=== PATIENT | female | born 1970 | race Caucasian/White ===

== ENCOUNTER → 2021-01-14 10:52 | Outpatient (CLI) | payer MEDICAID, SELFPAY ==
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
[2021-01-14 11:22] LABS: Amphetamine Urine VISTA NEGATIVE (<1000 ng/mL); Barbiturate Urine VISTA NEGATIVE (< 200 ng/mL); Benzodiazepine Urine VISTA NEGATIVE (< 200 ng/mL); Cocaine Urine VISTA NEGATIVE (< 300 ng/mL); Ecstacy Urine VISTA NEGATIVE (< 500 ng/mL); Methadone Urine VISTA NEGATIVE (< 300 ng/mL); PCP Urine VISTA NEGATIVE (< 25 ng/mL); THC Urine VISTA NEGATIVE (< 50 ng/mL); Vista UDS pH Range 5
== END ==
PROVIDERS: Referring Provider Anesthesiology; Visit Provider Anesthesiology
DX: F11.20 Opioid dependence, uncomplicated (principal); M54.5 Low back pain; M54.6 Pain in thoracic spine
CPT/HCPCS: 72040; 72070; 72100; 80307

== ENCOUNTER → 2021-07-28 14:46 | Outpatient (CLI) | payer MEDICAID, SELFPAY ==
[2021-07-28 16:28] LABS: Amphetamine Urine VISTA NEGATIVE (<1000 ng/mL); Barbiturate Urine VISTA NEGATIVE (< 200 ng/mL); Benzodiazepine Urine VISTA NEGATIVE (< 200 ng/mL); Cocaine Urine VISTA NEGATIVE (< 300 ng/mL); Ecstacy Urine VISTA NEGATIVE (< 500 ng/mL); Methadone Urine VISTA NEGATIVE (< 300 ng/mL); PCP Urine VISTA NEGATIVE (< 25 ng/mL); THC Urine VISTA POSITIVE (< 50 ng/mL); Vista UDS pH Range 5
== END ==
PROVIDERS: Visit Provider Anesthesiology
DX: F11.20 Opioid dependence, uncomplicated (principal)
CPT/HCPCS: 80307

== ENCOUNTER → 2021-08-08 10:29 | Outpatient (CLI) | payer MEDICAID, SELFPAY ==
[2021-08-08 12:18] LABS: Absolute Lymphocyte Count 1.87 X10^3/uL (0.83-4.51); Absolute Neutrophil Count 4.9 X10^3/uL (2.0-7.7); Basophil# 0.06 X10^3/uL; Basophil% 0.8 % (0-1); Eosinophil# 0.19 X10^3/uL; Eosinophils% 2.5 % (0-5); Hematocrit 40.2 % (37-47); Hemoglobin 13.2 g/dL (12.0-15.0); Lymphocyte # 1.87 X10^3/ul (0.83-4.51); Lymphocyte % 24.5 % (19-41); Mean Corp Hgb Conc 32.8 g/dL (32-36); Mean Corpuscular Hgb 34.3 pg (27.0-32.0); Mean Corpuscular Volume 104.4 fL (81-99); Mean Platelet Vol. 10.6 fl (6.2-12.0); Monocyte# 0.59 X10^3/uL; Monocyte% 7.7 % (0-10); NRBC Flagged by Analyzer 0 % (0-5); Neutrophil # 4.88 X10^3/uL (2.7-7.7); Neutrophil % 64.1 % (47-70); Platelet Count 244 K/mm3 (150-450); RBC Distribution Width CV 14.2 % (11.6-14.6); RBC Distribution Width SD 54.6 fl (35.1-43.9); Red Blood Count 3.85 M/mm3 (4.2-5.4); White Blood Count 7.6 K/mm3 (4.4-11.0)
[2021-08-08 12:39] LABS: ALB/GLOB Ratio 0.9 RATIO (0.9-2.4); AST(SGOT) 19 U/L (15-37); Alanine Aminotransfer ALT/SGPT 46 U/L (13-56); Albumin, Serum 3.6 g/dL (3.2-5.0); Alkaline Phosphatase 116 U/L (45-117); Anion Gap 10 (5-15); BUN 17 mg/dL (7-18); BUN/Creat Ratio 19.5 RATIO (10-20); Calcium,Total 9.4 mg/dL (8.5-10.1); Chloride 106 mmol/L (98-107); Creatinine, Serum 0.87 mg/dL (0.55-1.02); EST Glomerular Filtration Rate 73 mL/min (>60); Est Glom Filt Rate - Afr Amer 89 mL/min (>60); Globulin 3.8 g/dL (2.2-4.2); Glucose 100 mg/dL (74-106); Potassium 4.2 mmol/L (3.5-5.1); Protein, Total 7.4 g/dL (6.4-8.2); Sodium Level 141 mmol/L (136-145)
== END ==
PROVIDERS: Referring Provider Urology; Visit Provider Urology
DX: N39.0 Urinary tract infection, site not specified (principal); R10.9 Unspecified abdominal pain
CPT/HCPCS: 36415; 80053; 85025

== ENCOUNTER → 2021-08-18 12:29 | Outpatient (CLI) | payer MEDICAID, SELFPAY ==
--- NOTE | 2021-08-18 12:31 | CT_ITS ---
STUDY: CT ABDOMEN AND PELVIS WITH AND WITHOUT CONTRAST REASON FOR EXAM: Female, 50 years old. Flank pain UTI RADIATION DOSAGE (If Supplied By Facility): CTDIvol = ( 8.83 ) mGy, DLP = ( 840.68 ) mGycm TECHNIQUE: Transaxial images were obtained from the dome of the diaphragm to the symphysis pubis without oral contrast. IV 75ML ISOVUE 300 was administered. Sagittal and coronal images were reconstructed. Individualized dose optimization techniques were used for this CT. COMPARISON: None. FINDINGS: The visualized lung bases are unremarkable. The visualized portions of the heart are within normal limits. Normal liver. Gallbladder is removed.. Normal spleen. Normal pancreas. Normal bilateral adrenal glands. Normal right kidney. Normal left kidney. There is no intestinal obstruction. Appendix contains multiple appendicoliths but is not inflamed. Aorta is normal caliber and contains extensive lipid rich and calcified plaque. This is unusual for a patient of this age/gender profile and represents severely accelerated atherosclerosis. Normal urinary bladder. Uterus is removed. Normal abdominal wall. There is chronic degeneration and wedge compression deformity of T11. CT/CT Abd/Pelvis W/WO Contrast IMPRESSION: 1. Severe accelerated aortic atherosclerosis. Elevated future risk of adverse cardiovascular events. Atherosclerosis specialty referral advised. 2. Normal urinary system. Electronically Signed: Constance Bustamante MD at 16:43 EDT Tel , Service support ,
== END ==
PROVIDERS: Visit Provider Urology
DX: R10.9 Unspecified abdominal pain (principal); R11.0 Nausea; N39.0 Urinary tract infection, site not specified; R63.4 Abnormal weight loss
CPT/HCPCS: 74178; Q9967

== ENCOUNTER 2021-11-24 11:51 | Outpatient (CLI) | payer MEDICAID, SELFPAY ==
[2021-11-24 13:14] LABS: Amphetamine Urine VISTA NEGATIVE (<1000 ng/mL); Barbiturate Urine VISTA NEGATIVE (< 200 ng/mL); Benzodiazepine Urine VISTA NEGATIVE (< 200 ng/mL); Cocaine Urine VISTA NEGATIVE (< 300 ng/mL); Ecstacy Urine VISTA POSITIVE (< 500 ng/mL); Methadone Urine VISTA NEGATIVE (< 300 ng/mL); PCP Urine VISTA NEGATIVE (< 25 ng/mL); THC Urine VISTA NEGATIVE (< 50 ng/mL); Vista UDS pH Range 6
== END 2021-11-24 23:59 | disposition short-term general hospital (02) ==
LOC: LAB 11:53
PROVIDERS: Visit Provider Anesthesiology
DX: F11.20 Opioid dependence, uncomplicated (principal)
CPT/HCPCS: 80307

== ENCOUNTER 2022-01-05 12:14 | Outpatient (CLI) | payer MEDICAID, SELFPAY ==
--- NOTE | 2022-01-05 12:25 | MRI_ITS ---
STUDY: MRI LUMBAR SPINE WITHOUT CONTRAST REASON FOR EXAM: Female, 51 years old. Lumbar radiculopathy TECHNIQUE: Standardized fat and water weighted pulse sequences were obtained in the sagittal and axial planes. COMPARISON: CT abdomen and pelvis with and without contrast 08/18/2021. FINDINGS: T10-T11: (Sagittal only). Normal T10 inferior endplate. Old anterior wedge compression fracture of the upper T11 vertebral body and the deep central Schmorl''s node of the T11 superior endplate. Increase central disc space height due to the Schmorl''s node. Normal central canal and bilateral intervertebral neural foramina. T11-T12 and T12-L1: (Sagittal only). Normal endplates. Normal disc height, hydration and morphology. No ventral extradural defect. Normal central canal and bilateral intervertebral neural foramina. Normal lumbar lordosis. There is no substantial scoliosis. Normal conus medullaris that terminates at the T12-L1 disc level. L1-2: Normal endplates. Normal disc height, hydration and morphology. Normal bilateral facet joints. Normal central canal and bilateral lateral recesses. Normal bilateral intervertebral neural foramina. L2-3: Normal endplates. Mild disc space height narrowing. Small ventral extradural defect due to small posterior bulging disc. Normal facet joints. Normal central canal and bilateral lateral recesses. Normal bilateral intervertebral neural foramina. L3-4: Normal endplates. Normal disc height, hydration and morphology. Normal bilateral facet joints. Normal central canal and bilateral lateral recesses. Normal bilateral intervertebral neural foramina. L4-5: Normal endplates. Normal disc height, hydration and morphology. Normal bilateral facet joints. Normal central canal and bilateral lateral recesses. Normal bilateral intervertebral neural foramina. L5-S1: Normal endplates. Normal disc height, hydration and morphology. Normal bilateral facet joints. Normal central canal and bilateral lateral recesses. Normal bilateral intervertebral neural foramina. Normal visualized sacral ala. Normal visualized paraspinous soft tissue structures. MRI/Spine Lumbar (Routine) IMPRESSION: 1. No MRI evidence of lumbar extruded disc fragment, spinal stenosis or nerve root displacement. 2. Small L2-L3 posterior bulging disc. 3. Old anterior wedge compression fracture of the upper T11 vertebral body with a prominent empty T11 superior endplates of central Schmorl''s node. 4. No interval change when compared to CT abdomen and pelvis of 08/18/2021. Electronically Signed: John Salinas MD at 12:47 EST ,
== END 2022-01-05 23:59 | disposition home or self-care (01) ==
PROVIDERS: PCP Internal Medicine; Referring Provider Anesthesiology Pain Medicine; Visit Provider Anesthesiology Pain Medicine
DX: M54.16 Radiculopathy, lumbar region (principal)
CPT/HCPCS: 72148

== ENCOUNTER 2022-01-16 13:20 | Outpatient (CLI) | payer MEDICAID, SELFPAY ==
[2022-01-16 14:17] LABS: Amphetamine Urine VISTA NEGATIVE (<1000 ng/mL); Barbiturate Urine VISTA NEGATIVE (< 200 ng/mL); Benzodiazepine Urine VISTA NEGATIVE (< 200 ng/mL); Cocaine Urine VISTA NEGATIVE (< 300 ng/mL); Ecstacy Urine VISTA POSITIVE (< 500 ng/mL); Methadone Urine VISTA NEGATIVE (< 300 ng/mL); PCP Urine VISTA NEGATIVE (< 25 ng/mL); THC Urine VISTA NEGATIVE (< 50 ng/mL); Vista UDS pH Range 5
== END 2022-01-16 23:59 | disposition home or self-care (01) ==
LOC: LAB 13:22
PROVIDERS: PCP Internal Medicine; Referring Provider Anesthesiology Pain Medicine; Visit Provider Anesthesiology Pain Medicine
DX: F11.20 Opioid dependence, uncomplicated (principal)
CPT/HCPCS: 80307

== ENCOUNTER 2022-03-09 06:24 | Day surgery (SDC) | payer MEDICAID, SELFPAY ==
[2022-03-09] VITALS (7 sets, daily range): BP systolic 126–153; BP diastolic 70–93; PULSE 62–73; RESP 16–18; TEMP 36.4–36.7; O2SAT 94–99; BMI 25.1
[2022-03-09] MEDS: Lactated Ringers 1,000 ML 15 ML IV (06:40)
[2022-03-09] MEDS: Vancomycin IV 1,000 MG/200 ML BAG 200 MG IV (07:45)
--- NOTE | 2022-03-09 09:21 | RAD_ITS ---
STUDY: INTRAOPERATIVE FLUOROSCOPY TECHNIQUE: The examination was performed with referring physician in attendance. Under fluoroscopic observation, fluoroscopic images were obtained. Radiologist was not present for the study. Radiologist did not perform the procedure. This dictation is for documentation of the radiation dosage only. There is no interpretation of the images. TOTAL NUMBER OF IMAGES: 1 COMPARISON: None RADIATION DOSE: 49 mGy FLUOROSCOPY TIME: 95 seconds REASON FOR EXAM: KYPHOPLASTY T11 Female, 51 years old. FINDINGS: Images of the thoracolumbar spine. Images of the kyphoplasty RAD/Spine 1 View Any Level IMPRESSION: Fluoroscopic assistance images were obtained. Dictation for documentation purposes only. Electronically Signed: Meir Renae MD at 14:21 EDT ,
[2022-03-09] MEDS: 0.9% Normal Saline (Pres. free 10 ML Vial (09:26)
--- NOTE | 2022-03-09 11:22 | SUR.PHASEII ---
per dr shea, call office if needs pain medicine.
== END 2022-03-09 11:24 | disposition home or self-care (01) ==
LOC: SDC 06:24 → AC 06:26
PROVIDERS: Referring Provider Anesthesiology Pain Medicine; Visit Provider Anesthesiology Pain Medicine
PROC: (CPT 22513; principal; 2022-03-09 08:15)
DX: M48.54XA Collapsed vertebra, not elsewhere classified, thoracic region, initial encounter for fracture (principal); J44.9 Chronic obstructive pulmonary disease, unspecified; K21.9 Gastro-esophageal reflux disease without esophagitis; E78.00 Pure hypercholesterolemia, unspecified
CPT/HCPCS: 22513; 72020; 76000; J7120; J2405; J3490

== ENCOUNTER → 2022-03-22 | Outpatient (CLI) | payer MEDICAID, SELFPAY ==
--- NOTE | 2022-03-22 12:01 | RAD_ITS ---
STUDY: X-RAY - LUMBAR SPINE REASON FOR EXAM: Female, 51 years old. History of kyphoplasty. Increased pain. TECHNIQUE: 2 view(s) of the lumbar spine were obtained. COMPARISON: Lumbar spine MR dated 01/05/2022 and lumbar spine radiographs dated 01/14/2021. FINDINGS: Normal lumbar lordosis. Stable mild lumbosacral scoliosis. There is a normal alignment of the vertebrae. T11 kyphoplasty without complications. Diffuse facet sclerosis. Mild diffuse intervertebral disc space narrowing with small osteophytes. Vascular calcification. RAD/Lumbar Spine 2 or 3 Views IMPRESSION: T11 kyphoplasty since the prior study. Stable diffuse mild lumbosacral spondylosis. Electronically Signed: Curry Palafox MD at 13:03 EDT ,
--- NOTE | 2022-03-22 12:01 | RAD_ITS ---
STUDY: X-RAY - THORACIC SPINE REASON FOR EXAM: Female, 51 years old. Increasing pain since kyphoplasty 03/09/2022. TECHNIQUE: 2 view(s) of the thoracic spine were obtained. COMPARISON: 01/14/2021. FINDINGS: Osteopenia. Normal kyphosis of the thoracic spine. There is no substantial scoliosis. Kyphoplasty at T11 with mild anterior wedge compression deformity which is slightly progressed since the prior study. Normal disc space heights. The soft tissue structures are unremarkable. RAD/Thoracic Spine 3 Views IMPRESSION: Progression anterior wedge compression deformity of T11 since the prior study. Electronically Signed: Curry Palafox MD at 13:20 EDT ,
== END | disposition home or self-care (01) ==
LOC: RAD 11:55
PROVIDERS: Referring Provider Anesthesiology Pain Medicine; Visit Provider Anesthesiology Pain Medicine
DX: M80.08XA Age-related osteoporosis with current pathological fracture, vertebra(e), initial encounter for fracture (principal)
CPT/HCPCS: 72110; 72072; 72100

== ENCOUNTER → 2022-08-16 | Outpatient (CLI) | payer MEDICAID, SELFPAY ==
[2022-08-16 14:12] LABS: Amphetamine Urine VISTA NEGATIVE (<1000 ng/mL); Barbiturate Urine VISTA NEGATIVE (< 200 ng/mL); Benzodiazepine Urine VISTA NEGATIVE (< 200 ng/mL); Cocaine Urine VISTA NEGATIVE (< 300 ng/mL); Ecstacy Urine VISTA NEGATIVE (< 500 ng/mL); Methadone Urine VISTA NEGATIVE (< 300 ng/mL); PCP Urine VISTA NEGATIVE (< 25 ng/mL); THC Urine VISTA NEGATIVE (< 50 ng/mL); Vista UDS pH Range 7
== END | disposition home or self-care (01) ==
LOC: LAB 13:19
PROVIDERS: Visit Provider Anesthesiology Pain Medicine
DX: F11.20 Opioid dependence, uncomplicated (principal)
CPT/HCPCS: 80307

== ENCOUNTER 2022-09-06 14:46 | Emergency (ER) | payer MEDICAID, SELFPAY ==
[2022-09-06 14:47] VITALS: BP 138/88; PULSE 80; RESP 16; TEMP 36.4; O2SAT 99; BMI 25.7
--- NOTE | 2022-09-06 14:58 | ED.RN ---
PT STATES HE DOES NOT WANT TO FILE WORKERS COMP
--- NOTE | 2022-09-06 15:17 | EDS_ITS ---
HPI History of Present Illness Chief Complaint: Back Informant: patient Onset/Context/Timing Onset: Yesterday Context: Onset with activity and Sudden Onset Injury: lifting Timing: Continuous Quality: Aching Location: Lumbar Worsened by: improves with Movement Relieved by: Nothing Associated Symptoms Associated Symptoms: Negative for Numbness, Tingling, Radiation to Right Leg, Radiation to Left Leg, Fever, Abdominal Pain, Dysuria, Unable to Ambulate, Unable to Transfer, Urinary Retention, Urinary Incontinence, Constipation or Fecal Incontinence Narrative Narrative: Patient presents with back pain that began last night. Patient states she climbed up onto a counter and felt a pop in her back. Patient states she was lifting a window when this occurred. Patient states it weighed approximately 50 to 60 pounds. Patient states her pain has been constant. Patient describes it as aching. Patient states it is mainly on the left lumbar area. Patient states it is worse with movement. Patient states nothing seems to help with it. Patient denies any radiation of the pain. Patient denies any paresthesias or weakness. Patient denies any abdominal pain. Patient denies any bowel or blad aylin changes. Patient denies any saddle anesthesia. [facility] Medical History Anemia Anxiety Back pain Cardiology follow-up encounter COPD (chronic obstructive pulmonary disease) Difficulty swallowing Easy bruising Gastric reflux Gastritis High cholesterol History of ankle fracture History of diverticulitis History of pain when walking History of stress test History of suicide attempt Injury of back Injury of head and neck Leg cramps Pain Palpitations PTSD (post-traumatic stress disorder) Shortness of breath on exertion Smoker Wears dentures Home Medications acetaminophen 300 mg-codeine 60 mg tablet 1 tab PO BID PRN Pain 03/08/22 [History Last Taken Unknown] gabapentin 600 mg tablet 600 mg PO 4X/DAY 03/08/22 [History Last Taken Unknown] nabumetone 750 mg tablet 1,500 mg PO QHS 03/08/22 [History Last Taken Unknown] omeprazole 20 mg capsule,delayed release 20 mg PO BID 03/08/22 [History Last Taken 03/09/22] propranolol 10 mg tablet 10 mg PO BID PRN PANIC ATTACKS 03/08/22 [History Last Taken Unknown] tizanidine 4 mg capsule (Zanaflex) 4 mg PO BID 03/08/22 [History Last Taken Unknown] trazodone 150 mg tablet 150 mg PO QHS 03/08/22 [History Last Taken Unknown] venlafaxine 75 mg tablet 75 mg PO DAILY 03/08/22 [History Last Taken 03/09/22] Allergy/AdvReac Type Severity Reaction Status Date / Time amoxicillin Allergy Swelling Verified 09/06/22 14:49 tramadol Allergy Swelling Verified 09/06/22 14:49 Surgical History History of History of carpal tunnel surgery of left wrist History of carpal tunnel surgery of right wrist History of lumpectomy of right breast Hx laparoscopic cholecystectomy Hx of esophagogastroduodenoscopy Hx of hysterectomy Social History Smoking Status: Current every day smoker tobacco type: cigarettes ROS ROS ED Constitutional Constitutional ED: Denies chills or fever(s) Eyes Eyes: Denies blurry vision or change in vision ENT ENT ED: Denies rhinorrhea or sore throat Cardiovascular Cardiovascular: Denies chest pain or palpitations Respiratory/Chest Respiratory/Chest: Denies cough or dyspnea Gastrointestinal Gastrointestinal: Reports nausea; Denies vomiting Genitourinary Genitourinary ED: Denies dysuria or hematuria Musculoskeletal Musculoskeletal: Reports back pain; Denies neck pain Integumentary Denies abscess or rash Neurologic Neurologic: Denies headache(s) or weakness Allergic/Immunologic Allergic/Immunologic ED: Denies mouth swelling or urticaria EXAM Physical Exam Const Vital Signs: 09/06/22 14:47 Temperature 97.6 F L Temperature Source Temporal Pulse Rate 80 Respiratory Rate 16 Blood Pressure 138/88 H Blood Pressure Mean 104 Pulse Ox 99 Oxygen Delivery Method Room Air Positive well nourished and well developed General Appearance ED: well developed and NAD HEENT Reports moist mucous membranes Neck supple and no JVD Back/Spine Back/Spine Narrative: There is tenderness over the left lumbar paraspinal muscles. There is no midline tenderness. There is no bony crepitance or step-off. There is no obvious deformity noted. Range of motion was limited in all motions of the lumbar spine secondary to pain. Strength is 5/5 bilaterally in the lower extremities. There are no sensory deficits noted. Deep tendon reflexes are 2+/4 bilaterally in the lower extremities. Lumbar Spine / Lower Back: ROM limited and straight leg raise negative bilaterally Neuro oriented x3 and no sensory deficits noted Sensorium / Orientation: alert Motor Exam: strength 5/5 throughout Deep Tendon Reflexes: Rt Patellar (L4): 2+, Lt Patellar (L4): 2+, Rt Ankle (S1): 2+ and Lt Ankle (S1): 2+ Deep Tendon Reflexes Back: Rt Patellar (L4): 2+, Lt Patellar (L4): 2+, Rt Ankle (S1): 2+ and Lt Ankle (S1): 2+ Psych mental status grossly normal MDM MDM MDM Narrative Medical decision making narrative: Patient was given a dose of morphine here. X-rays of the lumbar spine were obtained. There are 2 views. On my interpretation, there are some degenerative changes. There is a prior T11 kyphoplasty. There is no acute fracture or spondylolisthesis. Radiologist also interpreted the x-rays and agrees. Patient was given a prescription for a short course of [place]. Patient was instructed use ice to the area. Patient was instructed to follow-up with her Workmen's Comp. or primary care physician in 3 to 5 days. Patient was given restrictions for work. Patient understood and was agreeable with the plan. All questions were answered. Radiography X-Ray: LS SPine, Read by ED Physician, Read by Radiologist, No Fracture and DJD Diagnostic Testing: Clinical Impression(s) from Imaging Studies Lumbar Spine X-Ray 09/06/22 15:21 IMPRESSION: Degenerative changes of the spine, as detailed above. Dextroscoliosis. Prior T11 kyphoplasty. Electronically Signed: Lamberto Hurtado MD at 15:44 EDT , Discharge Plan Triage Chief Complaint: Back ED Provider: Rob Dove Dx/Rx/DC Orders Clinical Impression: Acute lumbosacral myofascial strain, Chronic low back pain Instructions: ED Back Sprain/Strain Prescriptions: No Action gabapentin 600 mg Tablet 600 mg PO 4X/DAY venlafaxine [Effexor] 75 mg Tablet 75 mg PO DAILY nabumetone 750 mg Tablet 1,500 mg PO QHS propranolol 10 mg Tablet 10 mg PO BID PRN (Reason: PANIC ATTACKS) trazodone 150 mg Tablet 150 mg PO QHS omeprazole 20 mg Capsule,Delayed Release(Dr/Ec) 20 mg PO BID acetaminophen-codeine [Tylenol-Codeine #4] 300-60 mg Tablet 1 tab PO BID PRN (Reason: Pain) tizanidine [Zanaflex] 4 mg Capsule 4 mg PO BID Stand Alone Forms: Work Status Form Primary Care Provider: Care Physician,No Primary Referrals: Maryam Rodriguez MD [Med Staff - Residential Appliance Repair Technician] - 3-5 Days Care Physician,No Primary [Primary Care Provider] - [facility] [Non-Staff] - 3-5 Days Activity Restrictions/Additional Instructions: Continue your pain medication as prescribed by your pain management physician. You may use ice to the area. Do gentle stretching exercises. Disposition Disposition: Home, Self Care
--- NOTE | 2022-09-06 15:21 | RAD_ITS ---
STUDY: X-RAY - LUMBAR SPINE REASON FOR EXAM: Female, 51 years old. Injury/Pain TECHNIQUE: 2 view(s) of the lumbar spine were obtained. COMPARISON: Comparison is made with prior study of 03/22/2022. FINDINGS: There is an exaggerated lumbar lordosis. There is a dextroscoliosis of the lumbar spine. There is a normal alignment of the vertebrae. Normal vertebral bodies and endplates. Disc space narrowing at the L2-L3 and L3-L4 levels. The patient is status post vertebroplasty of the T11 vertebra. The soft tissue structures are unremarkable. RAD/Lumbar Spine 2 or 3 Views IMPRESSION: Degenerative changes of the spine, as detailed above. Dextroscoliosis. Prior T11 kyphoplasty. Electronically Signed: Lamberto Hurtado MD at 15:44 EDT ,
[2022-09-06] MEDS: Morphine 4 MG/ML Syringe IM (15:34)
== END 2022-09-06 16:36 | disposition home or self-care (01) ==
PROVIDERS: Emergency Provider Emergency Medicine; Visit Provider Emergency Medicine
DX: S39.012A Strain of muscle, fascia and tendon of lower back, initial encounter (principal); J44.9 Chronic obstructive pulmonary disease, unspecified; E78.00 Pure hypercholesterolemia, unspecified; F17.210 Nicotine dependence, cigarettes, uncomplicated; G89.29 Other chronic pain; M54.50 Low back pain, unspecified; X50.0XXA Overexertion from strenuous movement or load, initial encounter
CPT/HCPCS: 72100; 96372; 99282

== ENCOUNTER 2022-09-11 18:05 | Emergency (ER) | payer MEDICAID, SELFPAY ==
[2022-09-11 18:08] VITALS: BP 142/99; PULSE 87; RESP 16; TEMP 36.3; O2SAT 95; BMI 25.9
[2022-09-11 18:43] LABS: Absolute Lymphocyte Count 2.46 X10^3/uL (0.83-4.51); Absolute Neutrophil Count 6.8 X10^3/uL (2.0-7.7); Basophil# 0.06 X10^3/uL; Basophil% 0.6 % (0-1); Eosinophil# 0.12 X10^3/uL; Eosinophils% 1.2 % (0-5); Hematocrit 45.9 % (37-47); Hemoglobin 15.8 g/dL (12.0-15.0); Lymphocyte # 2.46 X10^3/ul (0.83-4.51); Lymphocyte % 24.2 % (19-41); Mean Corp Hgb Conc 34.4 g/dL (32-36); Mean Corpuscular Hgb 35.6 pg (27.0-32.0); Mean Corpuscular Volume 103.4 fL (81-99); Mean Platelet Vol. 9.8 fl (6.2-12.0); Monocyte# 0.72 X10^3/uL; Monocyte% 7.1 % (0-10); NRBC Flagged by Analyzer 0 % (0-5); Neutrophil # 6.75 X10^3/uL (2.7-7.7); Neutrophil % 66.2 % (47-70); Platelet Count 295 K/mm3 (150-450); RBC Distribution Width CV 13.9 % (11.6-14.6); RBC Distribution Width SD 53.4 fl (35.1-43.9); Red Blood Count 4.44 M/mm3 (4.2-5.4); White Blood Count 10.2 K/mm3 (4.4-11.0)
[2022-09-11] MEDS: 0.9% Normal Saline 1,000 ML 1000 ML IV (19:02)
[2022-09-11] MEDS: Ondansetron 4 MG/2 ML Vial IV (19:03)
--- NOTE | 2022-09-11 19:04 | ED.VIS.GI ---
HPI HPI - GI History of Present Illness Chief Complaint: Abd Pain Informant: patient Narrative Narrative: She statesPatient presents with nausea vomiting and diarrhea. The nausea started on Saturday evening or Saturday. She then developed some diarrhea that is mildly watery. She started vomiting over the last day. She came in because even if she drinks water she will vomit that back up. She states her daughter is eaten the same foods and she is not ill. She has not had fevers chills. No myalgias. No stuffed up nose congestion sore throat or coughing. No history of chronic abdominal issues. She takes [place] for chronic back pain but this is not different. She has no urinary symptoms. No blood in the stool or vomitus. She does not and has never had abdominal pain with it. Nothing specifically makes it better. Trying to eat or drink makes it worse. [facility] Medical History Anemia Anxiety Back pain Cardiology follow-up encounter COPD (chronic obstructive pulmonary disease) Difficulty swallowing Easy bruising Gastric reflux Gastritis High cholesterol History of ankle fracture History of diverticulitis History of pain when walking History of stress test History of suicide attempt Injury of back Injury of head and neck Leg cramps Pain Palpitations PTSD (post-traumatic stress disorder) Shortness of breath on exertion Smoker Wears dentures Home Medications acetaminophen 300 mg-codeine 60 mg tablet 1 tab PO BID PRN Pain 03/08/22 [History Last Taken Unknown] gabapentin 600 mg tablet 600 mg PO 4X/DAY 03/08/22 [History Last Taken Unknown] nabumetone 750 mg tablet 1,500 mg PO QHS 03/08/22 [History Last Taken Unknown] omeprazole 20 mg capsule,delayed release 20 mg PO BID 03/08/22 [History Last Taken 03/09/22] propranolol 10 mg tablet 10 mg PO BID PRN PANIC ATTACKS 03/08/22 [History Last Taken Unknown] tizanidine 4 mg capsule (Zanaflex) 4 mg PO BID 03/08/22 [History Last Taken Unknown] trazodone 150 mg tablet 150 mg PO QHS 03/08/22 [History Last Taken Unknown] venlafaxine 75 mg tablet 75 mg PO DAILY 03/08/22 [History Last Taken 03/09/22] ondansetron 4 mg disintegrating tablet 4 mg PO Q8H PRN nausea and vomiting #10 tabs 09/11/22 [Rx Last Taken Unknown] Allergy/AdvReac Type Severity Reaction Status Date / Time amoxicillin Allergy Swelling Verified 09/11/22 18:07 tramadol Allergy Swelling Verified 09/11/22 18:07 Surgical History History of History of carpal tunnel surgery of left wrist History of carpal tunnel surgery of right wrist History of lumpectomy of right breast Hx laparoscopic cholecystectomy Hx of esophagogastroduodenoscopy Hx of hysterectomy Social History Smoking Status: Current every day smoker tobacco type: cigarettes ROS ROS ED Constitutional Constitutional ED: Denies chills, fever(s) or subjective ENT ENT ED: Denies rhinorrhea or sore throat Cardiovascular Cardiovascular: Denies chest pain, palpitations or racing heartbeat Respiratory/Chest Respiratory/Chest: Denies cough, dyspnea or sputum Gastrointestinal Gastrointestinal: Reports diarrhea, nausea and vomiting; Denies abdominal pain, constipation or melena Genitourinary Genitourinary ED: Denies dysuria, hematuria or urinary frequency Musculoskeletal Musculoskeletal: Denies arthralgias or myalgias Integumentary Denies rash Neurologic Neurologic: Denies headache(s) Endocrine Endocrinology: Denies polydipsia or polyuria Hematologic/Lymphatic Hematologic/Lymphatic: Denies easy bleeding or easy bruising Allergic/Immunologic Allergic/Immunologic ED: Denies urticaria EXAM Physical Exam Const Vital Signs: 09/11/22 18:08 09/11/22 20:33 Temperature 97.3 F L Temperature Source Temporal Pulse Rate 87 Respiratory Rate 16 16 Blood Pressure 142/99 H Blood Pressure Mean 113 Pulse Ox 95 Oxygen Delivery Method Room Air Positive well nourished and well developed General Appearance ED: well developed HEENT Reports dry mucous membranes Mouth ED: Yes dry mucous membranes Mouth: dry mucous membranes Eyes General Eye ED: Negative for scleral icterus Neck no JVD Resp normal respiratory effort and clear to auscultation bilaterally Auscultation: Negative for rales, rhonchi or wheezes Cardio regular rate, regular rhythm and no murmurs GI non-tender and non-distended GI Narrative: Bowel sounds are slightly increased. But abdomen is not distended. There is no tenderness anywhere. Patient states her abdomen does not hurt and it does not hurt to press on Back/Spine no CVA tenderness Extremity General Extremety ED: Negative for edema or tenderness General Extremity: Negative for edema Neuro Sensorium / Orientation: alert Psych mental status grossly normal MDM MDM MDM Narrative Medical decision making narrative: CBC shows normal white count. Hemoglobin is mildly high but with normal platelets. This might be some mild dehydration. Electrolytes show minimal reduction of bicarb and elevation of chloride. Renal function was normal. Glucose is normal. Urinalysis is overall normal. Patient's recheck. Her nausea is gone and she feels better. We will get her Zofran to go. We discussed reasons to return. She has tolerated some water here. Lab Data Attestation: I reviewed the patient's lab results. Labs: Laboratory Results - last 24 hr 09/11/22 09/11/22 09/11/22 18:30 18:30 19:05 WBC 10.2 RBC 4.44 Hgb 15.8 H Hct 45.9 MCV 103.4 H MCH 35.6 H MCHC 34.4 RDW Std Deviation 53.4 H RDW Coeff of Marjan 13.9 Plt Count 295 MPV 9.8 Immature Gran % (Auto) 0.700 Neut % (Auto) 66.2 Lymph % (Auto) 24.2 [place] % (Auto) 7.1 Eos % (Auto) 1.2 Baso % (Auto) 0.6 Absolute Neuts (auto) 6.8 Absolute Lymphs (auto) 2.46 Nucleated RBC % 0 Sodium 137 Potassium 4.0 Chloride 110 H Carbon Dioxide 18.0 L Anion Gap 9 BUN 15 Creatinine 0.81 Estim Creat Clear Calc 78.65 Est GFR (MDRD) Af Amer 97 Est GFR (MDRD) Non-Af 80 BUN/Creatinine Ratio 18.5 Glucose 95 Calcium 10.0 Urine Color Yellow Urine Clarity Sl. Cloudy Urine pH 6.0 Ur Specific [place] 1.015 Urine Protein Negative Urine Glucose (UA) Normal Urine Ketones Negative Urine Occult Blood Negative Urine Nitrite Negative Urine Bilirubin Negative Urine Urobilinogen Normal Ur Leukocyte Esterase Negative Urine RBC 0 SEEN Urine WBC 0 SEEN Ur Squamous Epith Cells 0-5 SEEN Urine Bacteria 0 SEEN Urine Mucus 0 SEEN Discharge Plan Triage Chief Complaint: Abd Pain ED Provider: Virgilio Nath Dx/Rx/DC Orders Clinical Impression: Nausea vomiting and diarrhea, Dehydration, mild Instructions: ED Vomiting (Adult) Prescriptions: New ondansetron 4 mg tablet,disintegrating 4 mg PO Q8H PRN (Reason: nausea and vomiting) Qty: 10 0RF No Action gabapentin 600 mg Tablet 600 mg PO 4X/DAY venlafaxine [Effexor] 75 mg Tablet 75 mg PO DAILY nabumetone 750 mg Tablet 1,500 mg PO QHS propranolol 10 mg Tablet 10 mg PO BID PRN (Reason: PANIC ATTACKS) trazodone 150 mg Tablet 150 mg PO QHS omeprazole 20 mg Capsule,Delayed Release(Dr/Ec) 20 mg PO BID acetaminophen-codeine [Tylenol-Codeine #4] 300-60 mg Tablet 1 tab PO BID PRN (Reason: Pain) tizanidine [Zanaflex] 4 mg Capsule 4 mg PO BID Primary Care Provider: Care Physician,No Primary Referrals: Waldemar Rose MD [Med Staff - Graphic Design Professor] - 3-5 Days if not improving Care Physician,No Primary [Primary Care Provider] - Disposition Disposition: Home, Self Care
[2022-09-11 19:05] LABS: Anion Gap 9 (5-15); BUN 15 mg/dL (7-18); BUN/Creat Ratio 18.5 RATIO (10-20); Chloride 110 mmol/L (98-107); Creatinine, Serum 0.81 mg/dL (0.55-1.02); EST Glomerular Filtration Rate 80 mL/min (>60); Est Glom Filt Rate - Afr Amer 97 mL/min (>60); Estimated Creatinine Clearance 78.65 ml/min; Glucose 95 mg/dL (74-106); Sodium Level 137 mmol/L (136-145)
[2022-09-11 19:09] LABS: Bacteria 0 SEEN /hpf (None Seen); Mucous, Urine 0 SEEN /hpf (<or=2+); Red Blood Cells-Urine 0 SEEN /hpf (0-5); White Blood Cells 0 SEEN /hpf (0-5)
[2022-09-11 19:10] LABS: Color, Urine Yellow (Yellow); Glucose, Dipstick Normal (Normal); Ketone-Dipstick Negative (Negative); Leukocyte Esterase-Dipstick Negative /ul (Negative); Nitrite-Dipstick Negative (Negative); Occult Blood-Urine Negative /ul (Negative); Protein-Dipstick Negative (Negative); Specific Gravity, Urine 1.015 (1.002-1.030); Urine Bilirubin Dipstick Negative (Negative); Urine Clarity Sl. Cloudy (Clear); Urine Urobilinogen Normal (Normal)
[2022-09-11 19:29] LABS: Squamous Epithelial Cells - UA 0-5 SEEN /hpf (5-10)
[2022-09-11 20:33] VITALS: RESP 16
== END 2022-09-11 22:39 | disposition home or self-care (01) ==
PROVIDERS: Emergency Provider Emergency Medicine; Visit Provider Emergency Medicine
DX: R11.2 Nausea with vomiting, unspecified (principal); J44.9 Chronic obstructive pulmonary disease, unspecified; E86.0 Dehydration; G89.29 Other chronic pain; E78.00 Pure hypercholesterolemia, unspecified; M54.9 Dorsalgia, unspecified; R10.9 Unspecified abdominal pain; F17.210 Nicotine dependence, cigarettes, uncomplicated; R19.7 Diarrhea, unspecified
CPT/HCPCS: 80048; 81001; 85025; 87428; 96361; 96374; 99283; J7030; J2405

== ENCOUNTER → 2023-04-18 | Outpatient (CLI) | payer MEDICAID, SELFPAY ==
--- NOTE | 2023-04-18 10:04 | RAD_ITS ---
STUDY: X-RAY - LUMBAR SPINE REASON FOR EXAM: Female, 52 years old. TRAUMA TECHNIQUE: 2 view(s) of the lumbar spine were obtained. COMPARISON: 09/06/2022 FINDINGS: Stable appearance of kyphoplasty of T11. Mild to moderate compression fracture of T12, new or worse than prior exam. Minimal dextroconvex scoliosis. Normal lordosis. Normal disc space heights. The soft tissue structures are unremarkable. RAD/Lumbar Spine 2 or 3 Views IMPRESSION: Marked moderate compression fracture of T12 not definitely present on prior studies. Electronically Signed: Malachi Coleman MD at 19:58 EDT ,
== END | disposition home or self-care (01) ==
LOC: RAD 09:57
PROVIDERS: Referring Provider Anesthesiology Pain Medicine; Visit Provider Anesthesiology Pain Medicine
DX: M48.56XA Collapsed vertebra, not elsewhere classified, lumbar region, initial encounter for fracture (principal)
CPT/HCPCS: 72100

== ENCOUNTER → 2023-09-11 | Outpatient (CLI) | payer MEDICAID, SELFPAY ==
--- NOTE | 2023-09-11 10:24 | RAD_ITS ---
STUDY: X-RAY - THORACIC SPINE REASON FOR EXAM: Female, 52 years old. OSTEOPOROSIS TECHNIQUE: 3 view(s) of the thoracic spine were obtained. COMPARISON: 10/30/2022 FINDINGS: There is an increase in the normal thoracic kyphosis. Moderate dextroconvex scoliosis appears increased at the thoracolumbar junction. Compression fracture and vertebral plasty at T11 unchanged. There is a new compression fracture and vertebral plasty at T12. Normal disc space heights. The soft tissue structures are unremarkable. RAD/Thoracic Spine 3 Views IMPRESSION: New compression fracture and vertebral plasty at T12. No change T11 vertebral plasty and compression fracture. Electronically Signed: Darion Vega MD at 16:22 EDT ,
== END | disposition home or self-care (01) ==
LOC: RAD 10:23
PROVIDERS: Referring Provider Anesthesiology Pain Medicine; Visit Provider Anesthesiology Pain Medicine
DX: M80.08XA Age-related osteoporosis with current pathological fracture, vertebra(e), initial encounter for fracture (principal)
CPT/HCPCS: 72072

== ENCOUNTER → 2024-01-30 | Outpatient (CLI) | payer MEDICAID, SELFPAY ==
--- NOTE | 2024-01-30 11:54 | RAD_ITS ---
INDICATION: Age-related osteoporosis with current pathological fracture, EXAMINATION/TECHNIQUE: X-RAY - XR Spine Thoracic 3 Views COMPARISON: Prior study dated: FINDINGS: VERTEBRAE: Vertebroplasty at the level of L1 unchanged. New vertebroplasty at the level of T12. No new fractures are seen. No spondylolisthesis. Increased kyphosis of the thoracic spine worse than the previous exam. Scoliosis of the thoracolumbar junction. DISCS: Disc spaces are maintained. INCLUDED CHEST/ABDOMEN: No acute abnormalities. RAD/Thoracic Spine 3 Views IMPRESSION: 1. Vertebroplasty at the levels of L1 and T12 as above. 2. Mild increased kyphosis and dextroscoliosis. Electronically Signed: Maikel Andres MD at 10:49 EDT ,
[2024-01-30 13:25] LABS: Amphetamine Urine VISTA NEGATIVE (<1000 ng/mL); Barbiturate Urine VISTA NEGATIVE (< 200 ng/mL); Benzodiazepine Urine VISTA NEGATIVE (< 200 ng/mL); Cocaine Urine VISTA NEGATIVE (< 300 ng/mL); Ecstacy Urine VISTA NEGATIVE (< 500 ng/mL); Methadone Urine VISTA NEGATIVE (< 300 ng/mL); PCP Urine VISTA NEGATIVE (< 25 ng/mL); THC Urine VISTA POSITIVE (< 50 ng/mL); Vista UDS pH Range 5
== END | disposition home or self-care (01) ==
LOC: LAB 11:44
PROVIDERS: Referring Provider Anesthesiology Pain Medicine; Visit Provider Anesthesiology Pain Medicine
DX: M80.08XA Age-related osteoporosis with current pathological fracture, vertebra(e), initial encounter for fracture (principal); F11.20 Opioid dependence, uncomplicated
CPT/HCPCS: 72072; 80307

== ENCOUNTER → 2024-09-16 | Outpatient (CLI) | payer MEDICAID, SELFPAY ==
[2024-09-16 15:56] LABS: Amphetamine Urine VISTA NEGATIVE (<1000 ng/mL); Barbiturate Urine VISTA NEGATIVE (< 200 ng/mL); Benzodiazepine Urine VISTA NEGATIVE (< 200 ng/mL); Cocaine Urine VISTA NEGATIVE (< 300 ng/mL); Ecstacy Urine VISTA NEGATIVE (< 500 ng/mL); Methadone Urine VISTA NEGATIVE (< 300 ng/mL); PCP Urine VISTA NEGATIVE (< 25 ng/mL); THC Urine VISTA POSITIVE (< 50 ng/mL); Vista UDS pH Range 5
== END | disposition home or self-care (01) ==
LOC: LAB 15:03
PROVIDERS: Referring Provider Anesthesiology Pain Medicine; Visit Provider Anesthesiology Pain Medicine
DX: F11.20 Opioid dependence, uncomplicated (principal)
CPT/HCPCS: 80307

== ENCOUNTER → 2024-12-15 | Outpatient (CLI) | payer MEDICAID, SELFPAY ==
--- NOTE | 2024-12-15 17:00 | RAD_ITS ---
PROCEDURE: Thoracic spine radiographs REASON FOR EXAM: Pain, trauma TECHNIQUE: Two views of the thoracic spine COMPARISON: 09/11/2023 FINDINGS: Two chronic compression deformities of the lower thoracic spine status post vertebroplasty, unchanged from prior. Remaining vertebral body heights are within normal limits. Mild levoscoliosis. Accentuated thoracic kyphosis. Minimal multilevel disc space narrowing. Visualized posterior ribs are intact. RAD/Thoracic Spine 3 Views IMPRESSION: See above. Reading Location: [facility]
== END | disposition home or self-care (01) ==
LOC: RAD 16:49
PROVIDERS: Referring Provider Anesthesiology Pain Medicine; Visit Provider Anesthesiology Pain Medicine
DX: M54.6 Pain in thoracic spine (principal); W19.XXXA Unspecified fall, initial encounter
CPT/HCPCS: 72072